=== PATIENT | female | born 1955 | race Caucasian/White ===

== ENCOUNTER 2017-07-25 14:11 | Emergency (ER) | payer OTHER ==
[2017-07-25] MEDS: predniSONE 20 MG TAB PO (15:16)
[2017-07-25] MEDS: KETOROLAC 30 MG INJ IM (15:18)
== END 2017-07-25 16:09 | disposition home or self-care (01) ==
LOC: FTE 14:11
DX: M75.91 Shoulder lesion, unspecified, right shoulder (principal); J45.909 Unspecified asthma, uncomplicated; Z76.0 Encounter for issue of repeat prescription
CPT/HCPCS: 73030; 73030-RT; 96372; 99284-25